=== PATIENT | male | born 1945 | race Caucasian/White ===

== ENCOUNTER → 2016-11-20 | Outpatient (CLI) | payer MEDICARE, OTHER ==
--- NOTE | 2016-11-20 12:06 | REP ---
Right ribs and PA chest Right ribs four views: There is no acute rib fracture or other rib abnormality. PA chest: There is no comparison. There is no pneumothorax, hemothorax or pulmonary contusion. Lung barnett are clear. Cardiac size is normal. The bernardo, mediastinum and bony thorax are unremarkable. Impression: Negative PA chest. Signed by Rudolph Weston MD 11/20/2016 11:57 A
--- NOTE | 2016-11-20 12:22 | REP ---
RIGHT WRIST, FOUR VIEWS: There is no evidence of an acute fracture, dislocation or intrinsic bone disease. IMPRESSION: No fracture or dislocation. Signed by Rudolph Lorenzana MD 11/20/2016 05:12 P
== END ==
LOC: M WUC 11:10
PROVIDERS: ATTEND Physician Assistant
DX: S20.211A Contusion of right front wall of thorax, initial encounter (principal); S60.211A Contusion of right wrist, initial encounter; X58.XXXA Exposure to other specified factors, initial encounter; Y93.9 Activity, unspecified; Y92.9 Unspecified place or not applicable; Y99.8 Other external cause status

== ENCOUNTER 2016-12-03 12:53 | Emergency (ER) | payer MEDICARE, OTHER ==
[~2016-12-03] VITALS: Ht 182.9 cm; Wt 97.4 kg
[2016-12-03] MEDS ORDERED: ADVI200T PO (13:07)
[2016-12-03] MEDS ORDERED: PANT40TA2 PO (13:07)
[2016-12-03] MEDS ORDERED: ASPI1TAB PO (13:08)
[2016-12-03] MEDS ORDERED: ACETAMINOPH W/CODEINE #3 TAB UD PO ONE (14:00)
--- NOTE | 2016-12-03 15:17 | REP ---
LUMBAR SPINE COMPLETE: 12/03/2016 CLINICAL HISTORY: Trauma. COMPARISON: None. FINDINGS: Five views were provided. There is very gentle dextrorotatory curve upper lumbar spine with the pedicles, spinous and transverse processes intact. SI joints sacral ala and foramina intact. Hypertrophic facet change at L4-5 and L5-S1 without spondylolysis or spondylolisthesis. Disc space height slightly narrowed at L5-S1. Other disc space heights intact. Marginal osteophytes seen at the upper three lumbar levels. No destructive lesion. IMPRESSION: 1. 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 2. No spondylolysis or spondylolisthesis. Sacrum and SI joints unremarkable. Signed by Deep Do MD 12/03/2016 07:41 P
--- NOTE | 2016-12-03 15:18 | REP ---
THORACIC SPINE THREE VIEWS: 12/03/2016 CLINICAL HISTORY: Trauma, back pain. Comparison is the PA chest and right rib series 11/20/2016. FINDINGS: AP view shows gentle dextroconvex curve upper thoracic spine with the pedicles, spinous and transverse processes intact. There are marginal osteophytes at multiple levels. Posterior rib articulations and the medial clavicles are intact. The lateral view and coned lateral view of the cervicothoracic junction show marginal osteophytes lower thoracic spine but no acute compression deformity or any significant kyphosis. There is some old mid thoracic wedging at about T6. The C5-6 level shows spondylosis on the swimmer's view, while the C7-T1 alignment is normal and disc space height maintained. IMPRESSION: 1. Degenerative disc changes lower thoracic spine with old minor wedging at about T6. No acute compression fracture or destructive lesion. Signed by Deep Do MD 12/03/2016 07:42 P
[2016-12-03] MEDS ORDERED: TYLETAB14 PO (15:23)
[2016-12-03 15:50] VITALS: BP 135/67
== END 2016-12-03 15:53 | disposition home or self-care (01) ==
LOC: M ED 13:56
DX: S22.050A Wedge compression fracture of T5-T6 vertebra, initial encounter for closed fracture (principal); M51.37 Other intervertebral disc degeneration, lumbosacral region; W01.0XXA Fall on same level from slipping, tripping and stumbling without subsequent striking against object, initial encounter; Y92.019 Unspecified place in single-family (private) house as the place of occurrence of the external cause; Y93.H9 Activity, other involving exterior property and land maintenance, building and construction; Y99.8 Other external cause status; Z87.891 Personal history of nicotine dependence; Z79.899 Other long term (current) drug therapy; Z79.82 Long term (current) use of aspirin

== ENCOUNTER 2018-01-06 09:55 | Emergency (ER) | payer MEDICARE, OTHER ==
[2018-01-06 10:53] LABS: ERYTHROCYTE SEDIMENTATION RATE 6 mm/hr (0-20)
[2018-01-06 10:55] LABS: ALBUMIN 3.6 GM/DL (3.2-5.2); ALBUMIN/GLOBULIN RATIO 1.03 (1.00-1.93); ALKALINE PHOSPHATASE 78 U/L (45-117); ALT/SGPT 26 U/L (12-78); ANION GAP 7 MEQ/L (8-16); AST/SGOT 18 U/L (7-37); BILIRUBIN,TOTAL 0.4 MG/DL (0.2-1.0); BLOOD UREA NITROGEN 12 MG/DL (7-18); C REACTIVE PROTEIN QUANTITATIV < 0.30 MG/DL (0.00-0.30); CALCIUM LEVEL 8.6 MG/DL (8.8-10.2); CARBON DIOXIDE LEVEL 26 MEQ/L (21-32); CHLORIDE LEVEL 107 MEQ/L (98-107); CPK CREATINE PHOSPHOKINASE 56 U/L (39-308); CREATININE FOR GFR 1.12 MG/DL (0.70-1.30); GLOMERULAR FILTRATION RATE > 60.0 (>42); GLUCOSE, FASTING 125 MG/DL (70-100); POTASSIUM SERUM 3.7 MEQ/L (3.5-5.1); SODIUM LEVEL 140 MEQ/L (136-145); TOTAL PROTEIN 7.1 GM/DL (6.4-8.2); TROPONIN I < 0.02 NG/ML (< 0.10)
[2018-01-06 10:57] LABS: CK-MB VALUE MASS 1.1 NG/ML (<3.6); MB/CK RELATIVE INDEX 1.96 (< OR =4)
[2018-01-06 11:08] LABS: BASO # 0.1 10^3/uL (0.0-0.2); BASO % 0.6 % (0.0-1.0); EOS # 0.2 10^3/uL (0.0-0.50); EOS % 2.2 % (0.0-3.0); HEMATOCRIT 45.3 % (42.0-52.0); HEMOGLOBIN 15.9 g/dl (13.5-17.5); IMMATURE GRANULOCYTE % 0.2 % (0-3.0); LYMPH # 1.8 10^3/uL (1.5-4.5); LYMPH % 20.3 % (24.0-44.0); MEAN CORPUSCULAR HGB CONC 35.1 g/dl (32.0-36.5); MEAN CORPUSCULAR VOLUME 91.1 fl (80.0-96.0); MONO # 0.7 10^3/uL (0.0-0.8); MONO % 7.3 % (0.0-5.0); NEUTROPHILS # 6.2 10^3/uL (1.8-7.7); NEUTROPHILS % 69.4 % (36.0-66.0); PLATELET COUNT, AUTOMATED 199 10^3/uL (150-450); RED BLOOD COUNT 4.97 10^6/uL (4.30-6.10); RED CELL DISTRIBUTION WIDTH 11.9 % (11.5-14.5); WHITE BLOOD COUNT 8.9 10^3/uL (4.0-10.0)
== END 2018-01-06 12:09 | disposition home or self-care (01) ==
LOC: M ED 09:55
DX: M79.601 Pain in right arm (principal); Z79.82 Long term (current) use of aspirin; Z79.899 Other long term (current) drug therapy
CPT/HCPCS: 73060

== ENCOUNTER → 2018-12-19 | Outpatient (CLI) | payer MEDICARE ==
[~2018-12-19] MED LIST: ADVI200T PO; ASPI-255 PO; ASPI81TA26 PO; PANT40TA3 PO; TYLETAB14 PO
--- NOTE | 2018-12-19 17:17 | REP ---
Left rib series: Six views including PA chest: History: Contusion. Comparison chest x-ray November 20, 2016. Findings: PA chest radiograph shows no evidence of pneumothorax or hydrothorax. Lung barnett are clear. The lungs are well inflated. Cardiomediastinal silhouette is unremarkable and unchanged. There is diffuse osteopenia. Multiple left rib views demonstrate a nondisplaced fracture of the anterior end of the left 9th rib. This appears to be acute. This should be correlated with area of point tenderness. The lateral 11th rib shows cortical irregularity as well. No other rib fracture is seen. No bony destructive lesion is seen. There are mild degenerative changes in the left shoulder. Impression: Left lateral 9th and possibly 11th rib fractures. Clinical correlation suggested. No complications seen. Electronically Signed by Tim Renteria MD 12/20/2018 08:01 A
== END ==
LOC: M WUC 11:31
PROVIDERS: ATTEND Physician Assistant
DX: S22.42XA Multiple fractures of ribs, left side, initial encounter for closed fracture (principal); X58.XXXA Exposure to other specified factors, initial encounter; Y92.89 Other specified places as the place of occurrence of the external cause

== ENCOUNTER 2023-01-03 18:02 | Inpatient (IN) | payer MEDICARE ==
[~2023-01-03] VITALS: Ht 182.9 cm; Wt 99.3 kg
[~2023-01-03 18:02] MED LIST changes: +PANT40TA29 PO; -PANT40TA3 PO
[2023-01-03] MEDS: METOPROLOL 5 MG/5 ML VIAL IV SCH ×6 (18:54→20:08)
[2023-01-03 19:14] LABS: BASO % 0.1 % (0.0-1.0); EOS # 0.1 10^3/uL (0.0-0.5); EOS % 0.3 % (0.0-3.0); HEMATOCRIT 47.5 % (42.0-52.0); HEMOGLOBIN 15.6 g/dl (13.5-17.5); LYMPH # 2.7 10^3/uL (1.5-5.0); LYMPH % 15.4 % (24.0-44.0); MEAN CORPUSCULAR HEMOGLOBIN 31.6 pg (27.0-33.0); MEAN CORPUSCULAR HGB CONC 32.8 g/dl (32.0-36.5); MEAN CORPUSCULAR VOLUME 96.2 fl (80.0-96.0); MONO # 1.4 10^3/uL (0.0-0.8); NEUTROPHILS % 75.6 % (36.0-66.0); PLATELET COUNT, AUTOMATED 181 10^3/uL (150-450); RED BLOOD COUNT 4.94 10^6/uL (4.30-6.10); WHITE BLOOD COUNT 17.2 10^3/uL (4.0-10.0)
[2023-01-03 19:30] LABS: ALBUMIN 3.5 G/DL (3.2-5.2); ALKALINE PHOSPHATASE 72 U/L (46-116); ALT/SGPT 30 U/L (7.0-40); AST/SGOT 17 U/L (<34); BILIRUBIN,DIRECT 0.2 MG/DL (<0.4); BILIRUBIN,TOTAL 0.5 MG/DL (0.3-1.2); BLOOD UREA NITROGEN 30 MG/DL (9-23); CALCIUM LEVEL 9.2 MG/DL (8.3-10.6); CARBON DIOXIDE LEVEL 22 MMOL/L (20-31); CHLORIDE LEVEL 103 MMOL/L (98-107); CK-MB VALUE MASS 1.4 NG/ML (<3.6); CREATININE FOR GFR 0.92 MG/DL (0.70-1.30); GLOMERULAR FILTRATION RATE > 60.0 (>42); GLUCOSE, FASTING 95 MG/DL (74-106); MAGNESIUM LEVEL 1.9 MG/DL (1.8-2.4); SODIUM LEVEL 138 MMOL/L (136-145); TOTAL PROTEIN 6.3 G/DL (5.7-8.2)
[2023-01-03 19:32] LABS: THYROID STIMULATING HORMONE 1.878 uIU/ML (0.55-4.78)
[2023-01-03 19:33] LABS: FREE T4 1.37 NG/DL (0.89-1.76)
[2023-01-03 19:36] LABS: INR 0.93; PARTIAL THROMBOPLASTIN TIME 22.6 SECONDS (24.8-34.2); PROTHROMBIN TIME 12.7 SECONDS (12.5-14.5)
[2023-01-03 19:39] LABS: CPK CREATINE PHOSPHOKINASE 69 U/L (46-171); MB/CK RELATIVE INDEX 2.02 (< OR =4)
[2023-01-03] MEDS ORDERED: DIGOXIN INJ 0.5 MG/2 ML AMP IV STA ×2 (20:18→21:42)
[2023-01-03] MEDS ORDERED: METOPROLOL TART 50 MG TAB PO ONE ×2 (20:20→21:45)
[2023-01-03] MEDS: allopurinoL 300 MG TAB PO SCH (21:00)
[2023-01-03 21:16] LABS: CK-MB VALUE MASS 2.5 NG/ML (<3.6)
[2023-01-03 21:17] LABS: MB/CK RELATIVE INDEX 4.23 (< OR =4)
[2023-01-03 22:44] LABS: CK-MB VALUE MASS 1.9 NG/ML (<3.6)
[2023-01-03 22:45] LABS: MB/CK RELATIVE INDEX 3.27 (< OR =4)
[2023-01-03] MEDS ORDERED: AMIODARONE HCL 150 MG in IV 1 EA IV STA (23:05)
[2023-01-03] MEDS ORDERED: APIXABAN 5 MG TAB (ELIQUIS) PO ONE (23:05)
[2023-01-03] MEDS ORDERED: MOM 30ML SUSPENSION UDC PO PRN (23:55)
[2023-01-03] MEDS ORDERED: ALLO300T2 PO (23:59)
[2023-01-03] MEDS ORDERED: ROSU10TA6 PO (23:59)
[2023-01-03] MEDS ORDERED: PRED10TA2 PO (23:59)
[2023-01-03] MEDS ORDERED: LISI10TA22 PO (23:59)
[2023-01-04] MEDS ORDERED: HOME MED LIST COMPLETE! XX SCH
[2023-01-04] MEDS ORDERED: MAGNESIUM OXIDE 400MG TAB (MAG-OX) PO ONE
[2023-01-04 00:11] LABS: RSV AMPLIFICATION NEGATIVE (NEGATIVE)
[2023-01-04] MEDS ORDERED: AMIODARONE HCL 360 MG in IV 1 EA IV SCH (03:00)
[2023-01-04] MEDS ORDERED: METOPROLOL TART 50 MG TAB PO SCH (06:00)
[2023-01-04 07:34] LABS: HEMOGLOBIN 15.6 g/dl (13.5-17.5); MEAN CORPUSCULAR HEMOGLOBIN 31.9 pg (27.0-33.0); MEAN CORPUSCULAR HGB CONC 33.2 g/dl (32.0-36.5); MEAN CORPUSCULAR VOLUME 96.1 fl (80.0-96.0); PLATELET COUNT, AUTOMATED 167 10^3/uL (150-450); RED BLOOD COUNT 4.89 10^6/uL (4.30-6.10); WHITE BLOOD COUNT 15.9 10^3/uL (4.0-10.0)
[2023-01-04 08:15] LABS: PROCALCITONIN <0.04 ng/ml
[2023-01-04] MEDS: ROSUVASTATIN 10 MG TAB (CRESTOR) PO SCH (08:15)
[2023-01-04] MEDS: PANTOPRAZOLE 40MG TAB (PROTONIX) PO SCH (08:16)
[2023-01-04] MEDS: DOCUSATE SODIUM 100MG CAPSULE PO SCH ×2 (08:16→21:11)
[2023-01-04] MEDS: APIXABAN 5 MG TAB (ELIQUIS) PO SCH ×2 (08:16→21:11)
[2023-01-04 08:20] LABS: ALBUMIN 3.2 G/DL (3.2-5.2); ALKALINE PHOSPHATASE 62 U/L (46-116); ALT/SGPT 27 U/L (7.0-40); AST/SGOT 15 U/L (<34); BILIRUBIN,TOTAL 0.6 MG/DL (0.3-1.2); BLOOD UREA NITROGEN 26 MG/DL (9-23); CARBON DIOXIDE LEVEL 23 MMOL/L (20-31); CHLORIDE LEVEL 106 MMOL/L (98-107); GLOMERULAR FILTRATION RATE > 60.0 (>42); GLUCOSE, FASTING 79 MG/DL (74-106); POTASSIUM SERUM 4.2 MMOL/L (3.5-5.1); SODIUM LEVEL 140 MMOL/L (136-145); TOTAL PROTEIN 5.7 G/DL (5.7-8.2)
[2023-01-04] MEDS: DIGOXIN 0.125 MG TAB PO SCH (08:20)
[2023-01-04] MEDS: AMIODARONE 200 MG TAB (PACERONE) PO SCH ×3 (08:20→18:21)
[2023-01-04] MEDS: METOPROLOL TART 25 MG TABLET PO SCH ×3 (08:22→18:20)
[2023-01-04] MEDS ORDERED: METOPROLOL TART 25 MG TABLET PO SCH (09:00)
[2023-01-04 09:30] VITALS: BP 124/65; TEMP 97; O2SAT 98
[2023-01-04] MEDS ORDERED: predniSONE 20 MG TAB PO PRN (11:35)
[2023-01-04 11:54] VITALS: BP 109/52; TEMP 98.6; O2SAT 97
[2023-01-04 13:13] VITALS: BP 132/60
[2023-01-04 15:41] VITALS: BP 131/65; TEMP 97.6; O2SAT 95
[2023-01-04 19:30] VITALS: BP 124/56; TEMP 98.9; O2SAT 95
[2023-01-04] MEDS: allopurinoL 300 MG TAB PO SCH (21:11)
[2023-01-05 00:22] VITALS: BP 123/69; TEMP 97.7; O2SAT 98
[2023-01-05] MEDS: AMIODARONE 200 MG TAB (PACERONE) PO SCH ×2 (00:37→05:14)
[2023-01-05 04:17] VITALS: BP 123/59; TEMP 97; O2SAT 95
[2023-01-05] MEDS: METOPROLOL TART 25 MG TABLET PO SCH ×2 (05:12)
[2023-01-05 05:30] LABS: HEMATOCRIT 43.1 % (42.0-52.0); HEMOGLOBIN 14.4 g/dl (13.5-17.5); MEAN CORPUSCULAR HEMOGLOBIN 32.1 pg (27.0-33.0); MEAN CORPUSCULAR HGB CONC 33.4 g/dl (32.0-36.5); MEAN CORPUSCULAR VOLUME 96.2 fl (80.0-96.0); PLATELET COUNT, AUTOMATED 142 10^3/uL (150-450); RED BLOOD COUNT 4.48 10^6/uL (4.30-6.10); WHITE BLOOD COUNT 14.3 10^3/uL (4.0-10.0)
[2023-01-05 05:51] LABS: ALBUMIN 3.2 G/DL (3.2-5.2); ALKALINE PHOSPHATASE 60 U/L (46-116); ALT/SGPT 25 U/L (7.0-40); AST/SGOT 11 U/L (<34); BILIRUBIN,TOTAL 0.8 MG/DL (0.3-1.2); BLOOD UREA NITROGEN 22 MG/DL (9-23); CALCIUM LEVEL 8.8 MG/DL (8.3-10.6); CARBON DIOXIDE LEVEL 25 MMOL/L (20-31); CHLORIDE LEVEL 107 MMOL/L (98-107); CREATININE FOR GFR 0.99 MG/DL (0.70-1.30); GLOMERULAR FILTRATION RATE > 60.0 (>42); GLUCOSE, FASTING 83 MG/DL (74-106); POTASSIUM SERUM 4.1 MMOL/L (3.5-5.1); SODIUM LEVEL 140 MMOL/L (136-145); TOTAL PROTEIN 5.6 G/DL (5.7-8.2)
[2023-01-05 07:32] VITALS: BP 129/60; TEMP 96.9; O2SAT 95
[2023-01-05] MEDS: DIGOXIN 0.125 MG TAB PO SCH (09:00)
[2023-01-05] MEDS ORDERED: METOPROLOL TART 25 MG TABLET PO SCH (09:00)
[2023-01-05] MEDS: APIXABAN 5 MG TAB (ELIQUIS) PO SCH (09:01)
[2023-01-05] MEDS: DOCUSATE SODIUM 100MG CAPSULE PO SCH (09:01)
[2023-01-05] MEDS: PANTOPRAZOLE 40MG TAB (PROTONIX) PO SCH (09:01)
[2023-01-05] MEDS: ROSUVASTATIN 10 MG TAB (CRESTOR) PO SCH (09:01)
[2023-01-05 09:02] VITALS: BP 129/60
[2023-01-05] MEDS ORDERED: TOPR50TA PO (09:43)
[2023-01-05] MEDS ORDERED: ELIQ5TAB PO (09:43)
[2023-01-05] MEDS ORDERED: AMIO200T49 PO (09:43)
[2023-01-05] MEDS ORDERED: XARE20TA PO (11:22)
[2023-01-05 12:23] VITALS: BP 133/64; TEMP 97.5; O2SAT 97
== END 2023-01-05 13:08 | disposition home or self-care (01) | DRG 310 ==
LOC: M ED 18:02 → M ED INP 23:51 → ENRESERV 01-04 08:27 → M PCU 01-04 09:33
PROVIDERS: ADMIT Family Medicine; ATTEND Internal Medicine
PROC: B246ZZZ Ultrasonography of Right and Left Heart (ICD-10-PCS; principal; 2023-01-04)
DX: I48.92 Unspecified atrial flutter (principal); I10 Essential (primary) hypertension; E78.5 Hyperlipidemia, unspecified; K21.9 Gastro-esophageal reflux disease without esophagitis; M10.9 Gout, unspecified; Z20.822 Contact with and (suspected) exposure to COVID-19; Z79.899 Other long term (current) drug therapy; R00.1 Bradycardia, unspecified